=== PATIENT | female | born 1970 | race Caucasian/White ===

== ENCOUNTER 2021-08-02 07:40 | Day surgery (SDC) | payer BC ==
[2021-07-30 13:36] VITALS: BMI 41.0
[2021-08-02] MEDS ORDERED: Bupivacaine 0.25% HCL 30 ML VIAL ONE (10:20)
[2021-08-02] MEDS ORDERED: EPINEPHrine 1 MG/ML AMP ONE (10:21)
[2021-08-02] MEDS ORDERED: Iothalamate Meglumine 60% 50 ML VIAL FS ONE (10:21)
[2021-08-02] MEDS ORDERED: Scopolamine 1.5 mg/72 hour Patch ONE (10:22)
[2021-08-02] MEDS ORDERED: Fentanyl 100 MCG/2 ML VIAL ONE ×3 (10:23→12:16)
[2021-08-02] MEDS ORDERED: SUGAMMADEX SODIUM 200 MG/2 ML VIAL ONE (10:23)
[2021-08-02] MEDS ORDERED: ceFAZolin (BATCH) 2 GM/100 ML BAG ONE (10:37)
[2021-08-02] MEDS ORDERED: PROPOFOL 200 MG/20 ML VIAL ONE (10:51)
[2021-08-02] MEDS ORDERED: Rocuronium Bromide 10 MG/ML (10ML VIAL) ONE (10:51)
[2021-08-02] MEDS ORDERED: Dexamethasone 20 MG/5 ML VIAL ONE (10:51)
[2021-08-02] MEDS ORDERED: Glycopyrrolate 0.2 MG/ML 5 ML SYRINGE ONE (10:51)
[2021-08-02] MEDS ORDERED: Labetalol HCl 100 MG/20 ML VIAL ONE (10:51)
[2021-08-02] MEDS ORDERED: Ketorolac Tromethamine 30 MG/ML VIAL ONE (10:51)
[2021-08-02] MEDS ORDERED: Lidocaine 1% PF 5 ML VIAL ONE (10:51)
[2021-08-02] MEDS ORDERED: Ondansetron PF 4 MG/2 ML Vial ONE (10:51)
[2021-08-02] MEDS ORDERED: HYDROcodone/Acetaminophen 5/325 mg Tablet ONE (13:13)
== END 2021-08-02 14:08 | disposition home or self-care (01) ==
LOC: SDC 07:40
PROVIDERS: ATTEND Surgery
PROC: 0FT44ZZ Resection of Gallbladder, Percutaneous Endoscopic Approach (ICD-10-PCS; principal; 2021-08-02)
PROC: BF101ZZ Fluoroscopy of Bile Ducts using Low Osmolar Contrast (ICD-10-PCS; principal; 2021-08-02)
DX: K81.1 Chronic cholecystitis (principal); K82.8 Other specified diseases of gallbladder; I10 Essential (primary) hypertension; G47.30 Sleep apnea, unspecified; E11.9 Type 2 diabetes mellitus without complications; Z87.891 Personal history of nicotine dependence; Z79.84 Long term (current) use of oral hypoglycemic drugs; Z79.899 Other long term (current) drug therapy
CPT/HCPCS: 47532; 76000; 88304; C1713; J0171; J0690; J1100; J1885; J2405; J2704; J3010; Q9961-U8; S0020